=== PATIENT | female | born 1985 | race Caucasian/White ===

== ENCOUNTER 2017-06-15 14:35 | Emergency (ER) | payer SELFPAY ==
[~2017-06-15] VITALS: Ht 160 cm; Wt 83.0 kg
[~2017-06-15 14:35] MED LIST: ENAL5TAB98 PO; METF-324 PO; NOVOLOGP2 SQ
[2017-06-15 14:40] VITALS: BP 125/67; PULSE 82; RESP 20; TEMP 98.6; O2SAT 98
--- NOTE | 2017-06-15 14:55 | PD ---
HPI Chief Complaint: Flank/Kidney Pain Time Seen by Provider: 14:48 Travel History International Travel<30 days: No Contact w/Intl Traveler<30days: No Traveled to known affect area: No History of Present Illness HPI 31-year-old female history of diabetes presents for evaluation of lower back pain. Symptoms started 2 days ago. The pain is an aching pain that is reproduced with movement. 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 She is concerned that she may have a urinary tract infection because she has had urinary tract infection with similar pain in the past. She does endorse increased urinary frequency. She denies dysuria , flank pain, nausea or vomiting, fevers or chills. She denies abdominal pain or unusual vaginal discharge. She is currently menstruating. She has no other complaints at this time. PFSH Past Medical History Arthritis: No Asthma: No Autoimmune Disease: No Blood Disorders: No Anxiety: No Depression: No Heart Rhythm Problems: No Cancer: No Cardiovascular Problems: No High Cholesterol: No Chemotherapy: Yes Chest Pain: No Congestive Heart Failure: No COPD: No Cerebrovascular Accident: No Diabetes: Yes Endocrine: No GERD: No Glaucoma: No Genitourinary: No Headaches: No Hepatitis: No Hiatal Hernia: Yes Hypertension: No Immune Disorder: No Kidney Stones: No Musculoskeletal: No Neurologic: No Psychiatric: No Reproductive: No Respiratory: No Migraines: No Myocardial Infarction: No Radiation Therapy: No Renal Failure: No Seizures: No Sleep Apnea: No Thyroid Disease: No Ulcer: No ?: Not LMP: 06/15/17 Past Surgical History Abdominal Surgery: No AICD: No Appendectomy: No Cardiac Surgery: No Cholecystectomy: No Ear Surgery: No Endocrine Surgery: No Eye Surgery: No Genitourinary Surgery: No Gynecologic Surgery: No Insulin Pump: No Joint Replacement: No Oral Surgery: No Pacemaker: No Thoracic Surgery: No Social History Alcohol Use: Yes (COUPLE TIMES A YEAR) Tobacco Use: No Substance Use: No Allergies-Medications (Allergen,Severity, Reaction): Coded Allergies: No Known Allergies (Verified , 07/24/10) Reported Meds & Prescriptions Reported Meds & Active Scripts Active Macrobid (Nitrofurantoin Monohydrate Macrocrystals) 100 Mg Capsule 100 Mg PO BID 7 Days Reported Novolog (Insulin Aspart) 100 Units/Ml Inj 0 SQ DIRECTED USE TWICE A DAY FOR CORRECTION SCALE Metformin ER 24 HR (Metformin HCl) 1,000 Mg Tab 1,000 Mg PO BID Vasotec (Enalapril Maleate) 5 Mg Tab 2.5 Mg PO DAILY Review of Systems Except as stated in HPI: all other systems reviewed are Neg Physical Exam Narrative GENERAL: Well-developed well-nourished female in no acute distress SKIN: Warm and dry. No rash HEAD: Atraumatic. Normocephalic. EYES: Pupils equal and round. No scleral icterus. No injection or drainage. ENT: No nasal bleeding or discharge. Mucous membranes pink and moist. NECK: Trachea midline. No JVD. CARDIOVASCULAR: Regular rate and rhythm. No murmur appreciated. RESPIRATORY: No accessory muscle use. Clear to auscultation. Breath sounds equal bilaterally. GASTROINTESTINAL: Abdomen soft, non-tender, nondistended. Hepatic and splenic margins not palpable. MUSCULOSKELETAL: No obvious deformities. No tenderness to palpation along the thoracic or lumbar midline spine, no CVA tenderness. NEUROLOGICAL: Awake and alert. No obvious cranial nerve deficits. Motor grossly within normal limits. Normal speech. Data Data Last Documented VS Vital Signs Date Time Temp Pulse Resp B/P (MAP) Pulse Ox O2 Delivery O2 Flow Rate FiO2 06/15/17 14:40 98.6 82 20 125/67 (86) 98 Room Air Orders Orders Urinalysis - C+S If Indicated (06/15/17 14:52) Ed Urine Pregnancytest Poc (06/15/17 14:52) Urine Culture (06/15/17 15:28) Labs Laboratory Tests Test 06/15/17 15:28 Urine Color RED Urine Turbidity HAZY Urine pH 7.0 Urine Specific [place] 1.027 Urine Protein 30 mg/dL Urine Glucose (UA) NEG mg/dL Urine Ketones NEG mg/dL Urine Occult Blood LARGE Urine Nitrite NEG Urine Bilirubin NEG Urine Urobilinogen 2.0 MG/DL Urine Leukocyte Esterase SMALL Urine RBC /hpf Urine WBC 26 /hpf Urine Squamous Epithelial Cells 7 /hpf Urine Bacteria OCC /hpf Microscopic Urinalysis Comment CULTURE INDICATED MDM Medical Decision Making Medical Screen Exam Complete: Yes Emergency Medical Condition: Yes Medical Record Reviewed: Yes Differential Diagnosis Lumbar strain, pyelonephritis, cystitis Narrative Course 31-year-old female here with lower back pain that seems mechanical in examination. Physical examination is reassuring. Her urinalysis does reveal 26 WBCs and therefore urine culture has been sent. The patient will be empirically started on Macrobid pending urine culture results. Stable for discharge. Diagnosis Primary Impression: Cystitis Additional Instructions: Medication as prescribed. Stay well hydrated. Return for any acutely new or worsening symptoms. Med/Other Pt SpecificInfo: Prescription(s) given Scripts Nitrofurantoin Monohydrate Macrocrystals (Macrobid) 100 Mg Capsule 100 MG PO BID for Infection for 7 Days, CAP 0 Refills Prov: Benito Tamez MD 06/15/17 Disposition: 01 DISCHARGE HOME Condition: Stable Bennie Barreto Jun 15, 2017 14:55
[2017-06-15 15:53] LABS: BACTERIA, URINE OCC /hpf; BLOOD, URINE LARGE (NEG); COMMENT (UR) CULTURE INDICATED; CULTURE IF INDICATED CULTURE INDICATED; GLUCOSE,URINE NEG (NEG); KETONE, URINE NEG (NEG); NITRITE,URINE NEG (NEG); SQUAMOUS EPITHELIAL CELL URINE 7 /hpf (0-5)
[2017-06-15 15:55] LABS: URINE COLOR RED (YELLW/STRAW)
[2017-06-15] MEDS ORDERED: MACR100C2 PO (16:09)
== END 2017-06-15 17:16 | disposition home or self-care (01) ==
LOC: NEPD 14:35
DX: N30.90 Cystitis, unspecified without hematuria (principal); R35.0 Frequency of micturition; E11.9 Type 2 diabetes mellitus without complications; Z79.4 Long term (current) use of insulin; Z79.899 Other long term (current) drug therapy
CPT/HCPCS: 81001; 84703; 87086; 99283

== ENCOUNTER 2017-11-01 16:26 | Emergency (ER) | payer SELFPAY ==
[~2017-11-01] VITALS: Ht 160 cm; Wt 83.0 kg
[~2017-11-01 16:26] MED LIST changes: +MACR100C2 PO
[2017-11-01 16:42] VITALS: BP 139/79; PULSE 66; RESP 16; TEMP 99; O2SAT 99
[2017-11-01] MEDS ORDERED: guaiFENesin/CODEINE SYRUP 200 MG/20 MG/10 ML CUP PO ONE (18:15)
[2017-11-01] MEDS ORDERED: KETOROLAC TROMETHAMINE 60 MG/2 ML (IM) VIAL IM ONE (18:15)
--- NOTE | 2017-11-01 18:25 | PD ---
HPI Chief Complaint: Cold / Flu Symptoms Time Seen by Provider: 18:06 Travel History International Travel<30 days: No Contact w/Intl Traveler<30days: No Traveled to known affect area: No History of Present Illness HPI 32 yo F with no significant PMH presents to the ED with c/o nasal congestion and cough for 2 days. Also with generalized muscle aches, headache and chills. No documented fever at home but feels warm and cold. Took advil with no relieve. Denies any neck pain, chest pain, sob, throat pain, n/v, abdominal pain, focal weakness or numbness. PFSH Past Medical History Arthritis: No Asthma: No Autoimmune Disease: No Blood Disorders: No Anxiety: No Depression: No Heart Rhythm Problems: No Cancer: No Cardiovascular Problems: No High Cholesterol: No Chemotherapy: Yes Chest Pain: No Congestive Heart Failure: No COPD: No Cerebrovascular Accident: No Diabetes: Yes Patient Takes Glucophage: No Diminished Hearing: No Endocrine: No GERD: No Glaucoma: No Genitourinary: No Headaches: No Hepatitis: No Hiatal Hernia: Yes Hypertension: No Immune Disorder: No Kidney Stones: No Musculoskeletal: No Neurologic: No Psychiatric: No Reproductive: No Respiratory: No Migraines: No Myocardial Infarction: No Radiation Therapy: No Renal Failure: No Seizures: No Sleep Apnea: No Thyroid Disease: No Ulcer: No ?: Not Past Surgical History Abdominal Surgery: No AICD: No Appendectomy: No Cardiac Surgery: No Cholecystectomy: No Ear Surgery: No Endocrine Surgery: No Eye Surgery: No Genitourinary Surgery: No Gynecologic Surgery: No Insulin Pump: No Joint Replacement: No Oral Surgery: No Pacemaker: No Thoracic Surgery: No Social History Alcohol Use: Yes (COUPLE TIMES A YEAR) Tobacco Use: No Substance Use: No Allergies-Medications (Allergen,Severity, Reaction): Coded Allergies: Penicillins (Verified Allergy, Unknown, 11/01/17) Reported Meds & Prescriptions Reported Meds & Active Scripts Active No Active Prescriptions or Reported Medications Review of Systems Except as stated in HPI: all other systems reviewed are Neg Physical Exam Narrative GENERAL: 32yo F in mild distress. SKIN: Focused skin assessment warm/dry. HEAD: Atraumatic. Normocephalic. EYES: Pupils equal and round at 3mm bilaterally. EOMI. ENT:Throat: Clear. Uvula midline. No tonsillar exudate. NECK: No nuchal rigidity. CARDIOVASCULAR: Regular rate and rhythm. No murmur appreciated. RESPIRATORY: No accessory muscle use. Clear to auscultation. Breath sounds equal bilaterally. GASTROINTESTINAL: Abdomen soft, non-tender, nondistended. MUSCULOSKELETAL: No obvious deformities. No clubbing. No cyanosis. No edema. NEUROLOGICAL: Awake and alert. No obvious cranial nerve deficits. Motor grossly within normal limits. Normal speech. PSYCHIATRIC: Appropriate mood and affect; insight and judgment normal. Data Data Last Documented VS Vital Signs Date Time Temp Pulse Resp B/P (MAP) Pulse Ox O2 Delivery O2 Flow Rate FiO2 11/01/17 17:37 99 11/01/17 16:42 99.0 66 16 139/79 (99) Orders Orders Influenzae A/B Antigen (11/01/17 18:15) Ketorolac Inj (Toradol Inj) (11/01/17 18:15) Guaifen-Cod 200-20 Mg/10ml Liq (Robituss (11/01/17 18:15) MDM Medical Decision Making Medical Screen Exam Complete: Yes Emergency Medical Condition: Yes Differential Diagnosis Influenza vs. URI vs. viral syndrome vs. sinus headache vs. migraine headache Narrative Course 32 yo F who is well appearing here with flu like symptoms. Vital signs normal. Lungs are clear with equal breath sounds and saturating at 99% on RA. No red flags for headache. Influenza negative. Pt given robitussin, toradol and reevaluated at bedside. Pt said symptoms improved significantly. Pt is nontoxic appearing. Return precautions given. Diagnosis Primary Impression: URI (upper respiratory infection) Qualified Codes: J06.9 - Acute upper respiratory infection, unspecified Patient Instructions: General Instructions Departure Forms: Tests/Procedures Additional Instructions: Please follow up with your primary care physician in 2-3 days. Return to the ED if symptoms worsen. Med/Other Pt SpecificInfo: Prescription(s) given Scripts Dextromethorphan (Robitussin Lingering Cold) 15 Mg Cap 30 MG PO Q8H Y for COUGH for 5 Days, #30 CAP 0 Refills Prov: Preethi Reilly DO 11/01/17 Acetaminophen (Tylenol) 325 Mg Tab 650 MG PO Q6H Y for PAIN SCALE 1 TO 4, #20 TAB 0 Refills Prov: Preethi Reilly DO 1/23/18 Disposition: 01 DISCHARGE HOME Condition: Stable Preethi Reilly DO Nov 01, 2017 18:25
[2017-11-01] MEDS ORDERED: ROBICAP2 PO (19:45)
[2017-11-01] MEDS ORDERED: TYLE325T PO (19:45)
== END 2017-11-01 20:01 | disposition home or self-care (01) ==
LOC: PHED 16:26 → PHEFT 20:01
DX: J06.9 Acute upper respiratory infection, unspecified (principal)
CPT/HCPCS: 87804; 96372; 99284; J1885